=== PATIENT | female | born 1990 | race Caucasian/White ===

== ENCOUNTER → 2017-03-10 | Outpatient (REF) | payer OTHER ==
[~2017-03-10] MED LIST: ACET50TA PO; IBUP60TA PO; VITAPRTA PO
== END ==
LOC: M LAB REF 19:08
PROVIDERS: ATTEND Advanced Practice Midwife
DX: Z12.4 Encounter for screening for malignant neoplasm of cervix (principal)

== ENCOUNTER → 2017-03-18 | Outpatient (CLI) | payer BC, OTHER ==
--- NOTE | 2017-03-19 08:04 | REP ---
PELVIC ULTRASOUND: CLINICAL: Pelvic pain. Evaluate IUD placement. TECHNIQUE: Transabdominal pelvic ultrasound followed by transvaginal examination for better evaluation of the endometrium and adnexa with color Doppler evaluation of the ovaries. FINDINGS: The bladder is normal and currently measures 7.6 x 2.7 x 7.1 cm. Anteverted uterus measures 8.1 x 3.9 x 4.8 cm. The endometrial complex measures 3.5 mm thickness. The IUD is identified extending from the lower uterine segment into the cervix. The bilateral ovaries are normal in appearance and vascularity without torsion. Right ovary measures 2.9 x 1.7 x 1.5 cm; RI equals 0.62. Left ovary measures 4.5 x 2.2 x 4.0 cm, RI equals 0.59, and includes a 2.3 cm hemorrhagic cyst. Small amount of free fluid noted in the pelvis. No adnexal mass lesion. IMPRESSION: 1. IUD extends into the cervix and requires re-evaluation/repositioning. 2. Normal bilateral ovaries with 2.3 cm left hemorrhagic cyst. Signed by Cameron Lopez MD 03/20/2017 07:52 A
== END ==
LOC: M RAD 15:30
PROVIDERS: ATTEND Advanced Practice Midwife
DX: Z30.431 Encounter for routine checking of intrauterine contraceptive device (principal)

== ENCOUNTER 2017-10-12 23:38 | Emergency (ER) | payer BC, OTHER ==
[2017-10-13 00:47] LABS: KETONE, URINE AUTO RFX NEGATIVE (NEGATIVE); NITRITE, URINE AUTO RFX NEGATIVE (NEGATIVE); RBC, URINE AUTO RFX 13 /HPF (0-3); SPECIFIC GRAVITY UR AUTO RFX 1.005 (1.002-1.035); SQUAM EPITHELIAL CELL UR AURFX 0 /HPF (0-6)
[2017-10-13 01:00] LABS: LEUKOCYTE ESTERASE UR AUTO RFX 3+ (NEGATIVE); WBC, URINE AUTO RFX TNTC /HPF (0-3)
[2017-10-13] MEDS: CIPROFLOXACIN 500 MG TAB PO (01:15)
[2017-10-13] MEDS: PHENAZOPYRIDINE 100 MG TAB PO (01:15)
== END 2017-10-13 01:28 | disposition home or self-care (01) ==
LOC: M ED 23:38
DX: N10 Acute pyelonephritis (principal); Z79.899 Other long term (current) drug therapy; Z88.0 Allergy status to penicillin
CPT/HCPCS: 81001

== ENCOUNTER → 2018-01-18 | Outpatient (CLI) | payer BC, OTHER ==
[2018-01-18 09:04] LABS: BASO % 0.3 % (0.0-1.0); EOS # 0.1 10^3/uL (0.0-0.50); EOS % 0.6 % (0.0-3.0); HEMOGLOBIN 11.9 g/dl (12.0-15.5); IMMATURE GRANULOCYTE % 0.3 % (0-3.0); LYMPH # 1.7 10^3/uL (1.5-6.5); MEAN CORPUSCULAR HEMOGLOBIN 29.7 pg (27.0-33.0); MEAN CORPUSCULAR VOLUME 87.3 fl (80.0-96.0); MONO # 0.4 10^3/uL (0.0-0.8); MONO % 4.3 % (0.0-5.0); NEUTROPHILS # 6.5 10^3/uL (1.8-7.7); NEUTROPHILS % 75.5 % (36.0-66.0); PLATELET COUNT, AUTOMATED 243 10^3/uL (150-450); RED BLOOD COUNT 4.01 10^6/uL (4.00-5.40); WHITE BLOOD COUNT 8.7 10^3/uL (4.0-10.0)
[2018-01-18 10:36] LABS: CHLAMYDIA DNA AMPLIFICATION NEGATIVE (NEGATIVE); GC DNA AMPLIFICATION NEGATIVE (NEGATIVE)
[2018-01-18 10:49] LABS: HEPATITIS C VIRUS ABY INDEX < 0.0 INDEX (<0.8)
[2018-01-18 10:49] LABS: HBsAg Prenatal NEGATIVE (NEGATIVE); HIV 1&2 SCREEN CENTAUR NEGATIVE (NEGATIVE); RUBELLA IgG QUALITATIVE IMMUNE (IMMUNE)
== END ==
LOC: M LAB 08:26
DX: Z34.81 Encounter for supervision of other normal pregnancy, first trimester (principal); Z3A.09 9 weeks gestation of pregnancy
CPT/HCPCS: 86762

== ENCOUNTER → 2018-03-12 | Outpatient (CLI) | payer BC, OTHER | LOC: M RAD 11:31 | DX: Z34.82 Encounter for supervision of other normal pregnancy, second trimester (principal); Z3A.19 19 weeks gestation of pregnancy | CPT/HCPCS: 76817 ==

== ENCOUNTER → 2018-03-31 | Outpatient (CLI) | payer BC, OTHER ==
[~2018-03-31] MED LIST changes: -ACET50TA PO; +CIPR-249 PO; +MAPA500T17 PO; +PYRI1TAB5 PO
--- NOTE | 2018-03-31 17:39 | REP ---
Clinical: Anatomical evaluation. Comparison: 03/12/2018 . Findings: Examination demonstrates a single live intrauterine in variable presentation. motion is identified by technologist. Placenta is noted anterior and grade grade 1 without evidence for placenta previa or abruption. Amniotic fluid volume is normal. Cervix measures 4.4 cm in length and appears closed. No evidence for nuchal cord. Gestational age by LMP 22 weeks 2 day with KAREEN is 08/02/2018. Gestational age by current measurements 22 weeks 4 days with KAREEN 07/31/2018 . FHR equals 115 beats per minute. Estimated weight 513 grams ( 52nd percentile). Anatomical assessment demonstrates normal structures including cranium, choroid plexus, cavum, cerebellum/posterior fossa, facial features, lungs, four-chamber heart/ventricular outflow tracts, diaphragm, stomach, cord insertion/three-vessel cord, kidneys/bladder, spine, and extremities. Impression: Single live intrauterine in variable presentation demonstrating appropriate interval growth. In conjunction with prior examination anatomical assessment is complete and normal. No gross abnormalities are identified. Electronically Signed by Cameron Lopez MD 03/31/2018 05:30 P
== END ==
LOC: M RAD 16:24
PROVIDERS: ATTEND Advanced Practice Midwife
DX: Z34.82 Encounter for supervision of other normal pregnancy, second trimester (principal); Z3A.22 22 weeks gestation of pregnancy

== ENCOUNTER → 2018-05-12 | Outpatient (CLI) | payer BC, OTHER ==
[~2018-05-12] MED LIST changes: -MAPA500T17 PO; +MAPA500T2 PO
[2018-05-12 14:49] LABS: HEMATOCRIT 31.1 % (36.0-47.0); HEMOGLOBIN 10.6 g/dl (12.0-15.5); MEAN CORPUSCULAR HEMOGLOBIN 29.8 pg (27.0-33.0); MEAN CORPUSCULAR HGB CONC 34.1 g/dl (32.0-36.5); MEAN CORPUSCULAR VOLUME 87.4 fl (80.0-96.0); PLATELET COUNT, AUTOMATED 192 10^3/uL (150-450); RED BLOOD COUNT 3.56 10^6/uL (4.00-5.40)
== END ==
LOC: M LAB 13:25
PROVIDERS: ATTEND Advanced Practice Midwife
DX: Z34.82 Encounter for supervision of other normal pregnancy, second trimester (principal)

== ENCOUNTER → 2018-07-06 | Outpatient (REF) | payer OTHER | LOC: M LAB REF 17:31 | PROVIDERS: ATTEND Advanced Practice Midwife | DX: Z34.83 Encounter for supervision of other normal pregnancy, third trimester (principal); Z3A.00 Weeks of gestation of pregnancy not specified ==

== ENCOUNTER → 2018-11-19 | Outpatient (REF) | payer BC, OTHER ==
[~2018-11-19] MED LIST changes: +ACET-683 PO; +IBUP600T42 PO; -IBUP60TA PO; +IBUP80TA PO
[2018-11-23 15:07] LABS: HPV HYBRID CAPTURE II Negative (Negative)
== END ==
LOC: M LAB REF 17:04
PROVIDERS: ATTEND Advanced Practice Midwife
DX: Z12.4 Encounter for screening for malignant neoplasm of cervix (principal)
CPT/HCPCS: 87624; G0123

== ENCOUNTER → 2019-11-28 | Outpatient (REF) | payer OTHER | LOC: M LAB REF 13:43 | PROVIDERS: ATTEND Physician Assistant | DX: D22.9 Melanocytic nevi, unspecified (principal) ==

== ENCOUNTER → 2020-08-15 | Outpatient (REF) | payer OTHER ==
[~2020-08-15] MED LIST changes: +ASHL1TAB PO; +OMEP-221; +ZYRTTAB8 PO
== END ==
LOC: M SFHCWAGY 13:01
PROVIDERS: ATTEND Advanced Practice Midwife
DX: Z12.4 Encounter for screening for malignant neoplasm of cervix (principal)
CPT/HCPCS: 87624; G0123

== ENCOUNTER → 2020-08-19 | Outpatient (CLI) | payer OTHER | LOC: M LABSMTC 09:17 | PROVIDERS: ATTEND Anesthesiology | DX: Z01.812 Encounter for preprocedural laboratory examination (principal); Z20.822 Contact with and (suspected) exposure to COVID-19 ==

== ENCOUNTER 2020-08-24 07:01 | Day surgery (SDC) | payer BC, OTHER ==
[~2020-08-24] VITALS: Ht 157.5 cm; Wt 59.0 kg
[~2020-08-24 07:01] MED LIST changes: +NS 1,000 ML IV ONE
[2020-08-24] MEDS ORDERED: fentaNYL 100 MCG/2 ML INJECTION (J3010) As Ordered ONE (07:59)
[2020-08-24] MEDS ORDERED: LIDOCAINE 2% MDV 20ML VIAL As Ordered ONE (07:59)
[2020-08-24] MEDS ORDERED: propofoL 200 MG/20 ML VIAL As Ordered ONE (07:59)
--- NOTE | 2020-08-24 08:22 | ROOR ---
Patient Name: Vicki Rob Procedure Date: 08/24/2020 8:07 AM Date of : 1990 Age: 30 Room: [facility] Gender: Female Note Status: Finalized Procedure: Upper GI endoscopy Indications: Dyspepsia, Heartburn, Abdominal distention Providers: Say Jett MD Referring MD: Suly De La Torre NP Requesting Provider: Medicines: Monitored Anesthesia Care Complications: No immediate complications. Procedure: Pre-Anesthesia Assessment: - The heart rate, respiratory rate, oxygen saturations, blood pressure, adequacy of pulmonary ventilation, and response to care were monitored throughout the procedure. The Endoscope was introduced through the mouth, and advanced to the second part of duodenum. The upper GI endoscopy was accomplished without difficulty. The patient tolerated the procedure well. Findings: The esophagus was normal. The stomach was normal. The examined duodenum was normal. Biopsies for histology were taken with a cold forceps in the second portion of the duodenum for evaluation of celiac disease. Biopsies were taken with a cold forceps in the gastric antrum for Helicobacter pylori testing. Impression: - Normal esophagus. - Normal stomach. - Normal examined duodenum. - Biopsies were taken with a cold forceps for evaluation of celiac disease. - Biopsies were taken with a cold forceps for Helicobacter pylori testing. Recommendation: - Observe patient's clinical course. - Continue present medications. - Follow an antireflux regimen. - Telephone endoscopist for pathology results in 2 weeks. Procedure Code(s): --- Professional --- 64402, Esophagogastroduodenoscopy, flexible, transoral; with biopsy, single or multiple Diagnosis Code(s): --- Professional --- R10.13, Epigastric pain R12, Heartburn R14.0, Abdominal distension (gaseous) CPT copyright 2019 [employer]. All rights reserved. The codes documented in this report are preliminary and upon certified technician review may be revised to meet current compliance requirements. Say eJtt MD Say Jett MD 08/24/2020 8:21:36 AM Electronically signed by Say Jett MD Number of Addenda: 0 Note Initiated On: 08/24/2020 8:07 AM Estimated Blood Loss: Estimated blood loss: none.
[2020-08-24 08:40] VITALS: BP 108/66
== END 2020-08-24 08:46 | disposition home or self-care (01) ==
LOC: M OPP 07:01
PROVIDERS: ATTEND Internal Medicine Gastroenterology
DX: K29.60 Other gastritis without bleeding (principal); R14.0 Abdominal distension (gaseous); R10.13 Epigastric pain; Z80.0 Family history of malignant neoplasm of digestive organs; Z79.899 Other long term (current) drug therapy; Z88.0 Allergy status to penicillin
CPT/HCPCS: 43239; 88305; J3010

== ENCOUNTER → 2021-02-21 | Outpatient (CLI) | payer BC, OTHER ==
[~2021-02-21] MED LIST changes: -NS 1,000 ML IV ONE
[2021-02-21 16:56] LABS: FREE T4 0.88 NG/DL (0.76-1.46); THYROID STIMULATING HORMONE 1.2 uIU/ML (0.358-3.740)
[2021-02-21 17:01] LABS: PROLACTIN 2.4 NG/ML
[2021-02-22 18:10] LABS: TESTOSTERONE FREE (DIRECT) 3.4 pg/mL (0.0-4.2)
== END ==
LOC: M PLALAB 11:23
PROVIDERS: ATTEND Advanced Practice Midwife
DX: N92.6 Irregular menstruation, unspecified (principal); R10.2 Pelvic and perineal pain

== ENCOUNTER → 2021-03-13 | Outpatient (CLI) | payer BC, OTHER ==
[~2021-03-13] MED LIST changes: +DICY10CA13 PO; -OMEP-221; +OMEP40CA5 PO
== END ==
LOC: M WHC 08:15
PROVIDERS: ATTEND Advanced Practice Midwife
DX: N92.6 Irregular menstruation, unspecified (principal); N94.89 Other specified conditions associated with female genital organs and menstrual cycle; R10.2 Pelvic and perineal pain

== ENCOUNTER → 2021-03-29 | Outpatient (REF) | payer OTHER, BC | LOC: M LAB REF 13:01 | PROVIDERS: ATTEND Advanced Practice Midwife | DX: N92.1 Excessive and frequent menstruation with irregular cycle (principal) ==

== ENCOUNTER → 2021-05-06 | Outpatient (CLI) | payer BC, OTHER | LOC: M LABSMTC 10:34 | PROVIDERS: ATTEND Anesthesiology | DX: Z01.812 Encounter for preprocedural laboratory examination (principal); Z20.822 Contact with and (suspected) exposure to COVID-19 ==

== ENCOUNTER 2021-05-10 06:06 | Day surgery (SDC) | payer BC, OTHER ==
[~2021-05-10] VITALS: Ht 157.5 cm; Wt 60.3 kg
[~2021-05-10 06:06] MED LIST changes: +CIPROFLOXACIN 400 MG in IV 1 EA IV ONE; +CLINDAMYCIN 900 MG in IV 1 EA IV ONE; +LIDOCAINE 1% MDV 20ML VIAL SQ PRN; +LR 1,000 ML IV ONE
[2021-05-10 06:44] LABS: HEMATOCRIT 37.9 % (36.0-47.0); HEMOGLOBIN 12.6 g/dl (12.0-15.5); MEAN CORPUSCULAR HEMOGLOBIN 28.8 pg (27.0-33.0); MEAN CORPUSCULAR HGB CONC 33.2 g/dl (32.0-36.5); MEAN CORPUSCULAR VOLUME 86.7 fl (80.0-96.0); PLATELET COUNT, AUTOMATED 297 10^3/uL (150-450); RED BLOOD COUNT 4.37 10^6/uL (4.00-5.40); WHITE BLOOD COUNT 6.7 10^3/uL (4.0-10.0)
[2021-05-10] MEDS ORDERED: BUPIVACAINE HCL 0.25% 30ML VIAL As Ordered ONE (07:10)
[2021-05-10] MEDS ORDERED: ONDANSETRON 4MG/2ML VIAL As Ordered ONE (07:56)
[2021-05-10] MEDS ORDERED: propofoL 200 MG/20 ML VIAL As Ordered ONE (07:56)
[2021-05-10] MEDS ORDERED: fentaNYL 100 MCG/2 ML INJECTION (J3010) As Ordered ONE (07:56)
[2021-05-10] MEDS ORDERED: HYDROmorphone HCL 2MG/ML 1ML VIAL As Ordered ONE (07:56)
[2021-05-10] MEDS ORDERED: KETOROLAC 60MG 2ML VIAL As Ordered ONE (07:56)
[2021-05-10] MEDS ORDERED: dexameTHASONE 4 MG/ML 1ML VIAL (J1100 PER 1MG) As Ordered ONE (07:56)
[2021-05-10] MEDS ORDERED: SUGAMMADEX SODIUM 500 MG/5 ML VIAL (BRIDION) As Ordered ONE (07:56)
[2021-05-10] MEDS ORDERED: ROCURONIUM BROMIDE 50 MG/5 ML VIAL As Ordered ONE (07:56)
[2021-05-10] MEDS ORDERED: MIDAZOLAM INJ 2MG/2ML VIAL (J2250 PER 1MG) As Ordered ONE (07:56)
[2021-05-10] MEDS ORDERED: LIDOCAINE 2% 100MG/5ML SDV (FOR ANES.) As Ordered ONE (07:56)
[2021-05-10] MEDS ORDERED: ACETAMINOPHEN 1000MG 100ML IV BTL (OFIRMEV) (J0131 PER 10MG) As Ordered ONE (08:06)
[2021-05-10] MEDS ORDERED: LR 1,000 ML IV SCH (09:50)
[2021-05-10] MEDS ORDERED: oxyCODONE 5MG TAB PO PRN (09:50)
[2021-05-10] MEDS ORDERED: ONDANSETRON 4MG/2ML VIAL IV PRN (09:50)
[2021-05-10] MEDS ORDERED: fentaNYL 100 MCG/2 ML INJECTION (J3010) IV PRN (09:50)
[2021-05-10] MEDS ORDERED: PERCOCET 5MG/325MG TAB PO PRN ×2 (09:55)
[2021-05-10] MEDS ORDERED: SCOPOLAMINE 1MG TRANSDERMAL PATCH TOP ONE (10:00)
[2021-05-10] MEDS ORDERED: MEPERIDINE INJ 25 MG/ML VIAL (J2175) As Ordered ONE (10:50)
[2021-05-10] MEDS ORDERED: MEPERIDINE INJ 25 MG/ML VIAL (J2175) IV PRN (10:55)
[2021-05-10 12:40] VITALS: BP 116/55
[2021-05-10] MEDS ORDERED: KETOROLAC 30 MG/ML 1ML VIAL IV SCH (15:00)
== END 2021-05-10 13:05 | disposition home or self-care (01) ==
LOC: M SDC 06:06
PROVIDERS: ATTEND Obstetrics & Gynecology
DX: N92.1 Excessive and frequent menstruation with irregular cycle (principal); N72 Inflammatory disease of cervix uteri; N85.01 Benign endometrial hyperplasia; K21.9 Gastro-esophageal reflux disease without esophagitis; T88.59XA Other complications of anesthesia, initial encounter; Z88.0 Allergy status to penicillin
CPT/HCPCS: 36415; 58552; 81025; 85027; 86850; 86900; 86901; 88307; J0131; J0744; J1100; J1170; J1885; J2175; J2250; J2405; J3010; S2900

== ENCOUNTER → 2022-03-03 | Outpatient (CLI) | payer BC, OTHER ==
[~2022-03-03] MED LIST changes: -CIPROFLOXACIN 400 MG in IV 1 EA IV ONE; -CLINDAMYCIN 900 MG in IV 1 EA IV ONE; -LIDOCAINE 1% MDV 20ML VIAL SQ PRN; -LR 1,000 ML IV ONE
== END ==
LOC: M RAD 06:56
PROVIDERS: ATTEND Internal Medicine Gastroenterology
DX: R10.11 Right upper quadrant pain (principal); R10.31 Right lower quadrant pain; R15.2 Fecal urgency
CPT/HCPCS: 78227; A9537

== ENCOUNTER → 2022-04-11 | Outpatient (CLI) | payer BC, OTHER | LOC: M RAD 07:21 | PROVIDERS: ATTEND Surgery | DX: K82.8 Other specified diseases of gallbladder (principal) ==

== ENCOUNTER → 2022-06-12 | Outpatient (CLI) | payer BC, OTHER ==
[2022-06-13 18:07] LABS: ENDOMYSIAL ABY IgA Negative (Negative); TISSUE TRANSGLUTAMINASE IgA <2 U/mL (0-3); TISSUE TRANSGLUTAMINASE IgG <2 U/mL (0-5)
== END ==
LOC: M PLALAB 08:34
PROVIDERS: ATTEND Nurse Practitioner Family
DX: R15.2 Fecal urgency (principal); K21.9 Gastro-esophageal reflux disease without esophagitis; R10.11 Right upper quadrant pain

== ENCOUNTER → 2022-07-05 | Outpatient (REF) | payer BC, OTHER | LOC: M LAB REF 18:16 | PROVIDERS: ATTEND Physician Assistant Medical | DX: R07.0 Pain in throat (principal) ==

== ENCOUNTER → 2023-03-13 | Outpatient (REF) | payer OTHER, BC ==
[~2023-03-13] MED LIST changes: +DICY-61 PO; -DICY10CA13 PO
[2023-03-16 14:53] LABS: PERCENT SATURATION 29.8 % (13.2-45.0)
[2023-03-16 14:55] LABS: FERRITIN 89.5 NG/ML (7.3-270.7)
== END ==
LOC: M LAB REF 11:30
PROVIDERS: ATTEND Internal Medicine
DX: D50.9 Iron deficiency anemia, unspecified (principal)

== ENCOUNTER → 2023-03-30 | Outpatient (CLI) | payer BC, OTHER | LOC: M RAD 11:22 | PROVIDERS: ATTEND Internal Medicine | DX: K81.1 Chronic cholecystitis (principal) | CPT/HCPCS: 78227; A9537 ==

== ENCOUNTER → 2023-10-23 | Outpatient (REF) | payer OTHER, BC ==
[2023-10-23 13:25] LABS: FERRITIN 95.7 NG/ML (7.3-270.7); PERCENT SATURATION 24.9 % (13.2-45.0)
== END ==
LOC: M LAB REF 12:26
PROVIDERS: ATTEND Internal Medicine
DX: D50.9 Iron deficiency anemia, unspecified (principal)

== ENCOUNTER → 2024-05-02 | Outpatient (REF) | payer OTHER, BC | LOC: M LAB REF 12:18 | PROVIDERS: ATTEND Internal Medicine | DX: K90.0 Celiac disease (principal); K58.8 Other irritable bowel syndrome; R10.9 Unspecified abdominal pain ==